=== PATIENT | male | born 2000 | race African-American/Black ===

== ENCOUNTER 2019-06-13 14:35 | Emergency (ER) | payer OTHER, MEDICAID ==
[~2019-06-13] VITALS: Ht 177.8 cm; Wt 63.5 kg
[2019-06-13 14:41] VITALS: BP 113/62
== END 2019-06-13 17:27 | disposition home or self-care (01) ==
LOC: ER 14:38
DX: S41.011D Laceration without foreign body of right shoulder, subsequent encounter (principal); J45.909 Unspecified asthma, uncomplicated; F17.210 Nicotine dependence, cigarettes, uncomplicated; X58.XXXD Exposure to other specified factors, subsequent encounter